=== PATIENT | female | born 1970 ===

== ENCOUNTER 2017-01-23 16:22 | Emergency (ER) | payer OTHER ==
[2017-01-23 16:27] VITALS: BMI 23.1
[2017-01-23 16:41] VITALS: BP 127/94; PULSE 95; RESP 16; TEMP 97.9
--- NOTE | 2017-01-23 16:42 | ED PDOC ---
Arrival/HPI - General Chief Complaint: Lower Extremity Problem/Injury Time Seen by Provider: 01/23/17 16:40 Historian: Patient - History of Present Illness Narrative History of Present Illness (Text): 01/23/17 16:40 46yo female who present with right foot pain s/p trauma yesterday. States she twisted her right foot while walking on a side walk yesterday. States she applied ice to the area without relieve. Did not take any medication. Patient with with weight bearing. Denies any other complaint. Past Medical History - Provider Review Nursing Documentation Reviewed: Yes - Infectious Disease Hx of Infectious Diseases: None - Tetanus Immunization Tetanus Immunization: Unknown - Past Medical History Past Medical History: No Previous - Cardiac Hx Cardiac Disorders: No - Pulmonary Hx Respiratory Disorders: No - Neurological Hx Neurological Disorder: No - HEENT Hx HEENT Disorder: No - Renal Hx Renal Disorder: No - Endocrine/Metabolic Hx Endocrine Disorders: No - Hematological/Oncological Hx Blood Disorders: No - Integumentary Hx Dermatological Disorder: No - Musculoskeletal/Rheumatological Hx Musculoskeletal Disorders: No Hx Falls: No - Gastrointestinal Hx Gastrointestinal Disorders: No - Genitourinary/Gynecological Hx Genitourinary Disorders: No - Psychiatric Hx Psychophysiologic Disorder: No Hx Depression: No Hx Emotional Abuse: No Hx Physical Abuse: No Hx Substance Use: No - Surgical History Hx Tubal Ligation: Yes - Anesthesia Hx Anesthesia: Yes Hx Anesthesia Reactions: No Hx Malignant Hyperthermia: No - Suicidal Assessment Feels Threatened In Home Enviroment: No Family/Social History - Physician Review Nursing Documentation Reviewed: Yes Family/Social History: Unknown Family HX Smoking Status: Light Smoker < 10 Cigarettes Daily Hx Alcohol Use: No Hx Substance Use: No Hx Substance Use Treatment: No Allergies/Home Meds Allergies/Adverse Reactions: Allergies No Known Allergies Allergy (Verified 01/23/17 16:28) Review of Systems - Physician Review All systems were reviewed & negative as marked: Yes - Review of Systems Constitutional: Normal Eyes: Normal ENT: Normal Respiratory: Normal Cardiovascular: Normal Gastrointestinal: Normal Genitourinary Female: Normal Musculoskeletal: Arthralgias (Right foot pain) Skin: Normal Neurological: Normal Endocrine: Normal Hemo/Lymphatic: Normal Psychiatric: Normal Physical Exam Vital Signs Reviewed: Yes Vital Signs Temp Pulse Resp BP Pulse Ox 01/23/17 16:37 97.9 F 95 H 16 127/94 H 97 Temperature: Afebrile Blood Pressure: Normal Pulse: Regular Respiratory Rate: Normal Appearance: Positive for: Well-Appearing, Non-Toxic, Comfortable Pain Distress: None Mental Status: Positive for: Alert and Oriented X 3 - Systems Exam Head: Present: Atraumatic, Normocephalic Pupils: Present: PERRL Extroacular Muscles: Present: EOMI Conjunctiva: Present: Normal Mouth: Present: Moist Mucous Membranes Neck: Present: Normal Range of Motion Respiratory/Chest: Present: Clear to Auscultation, Good Air Exchange. No: Respiratory Distress, Accessory Muscle Use Cardiovascular: Present: Regular Rate and Rhythm, Normal S1, S2. No: Murmurs Abdomen: Present: Normal Bowel Sounds. No: Tenderness, Distention, Peritoneal Signs Back: Present: Normal Inspection Upper Extremity: Present: Normal Inspection. No: Cyanosis, Edema Lower Extremity: Present: NORMAL PULSES, Normal ROM, Tenderness (Right lateral foot\), Neurovascularly Intact. No: Edema, Swelling, Erythema, Deformity, Temperature Abnormalties Neurological: Present: GCS=15, CN II-XII Intact, Speech Normal Skin: Present: Warm, Dry, Normal Color. No: Rashes Psychiatric: Present: Alert, Oriented x 3, Normal Insight, Normal Concentration Medical Decision Making ED Course and Treatment: 01/23/17 17:24 Right foot xray - No acute fracture/dislocation Andrew wrap applied and ortho shoe given Referred to her PMD. TRT ED for any new or worsening symptoms - RAD Interpretation Radiology Orders: 01/23/17 16:40 FOOT RIGHT 3 VIEWS ROUTINE [RAD] Stat - Medication Orders Current Medication Orders: Discontinued Medications Ibuprofen (Motrin Tab) 600 mg PO STAT STA Stop: 01/23/17 16:44 Last Admin: 01/23/17 17:12 Dose: 600 MG MAR Pain/Vitals Document 01/23/17 17:12 [email or web address] (Rec: 01/23/17 17:13 [email or web address] [facility] [place]-FAST- TRACK2) Pain Reassessment Is This A Pain ReAssessment? No Sleep Is patient sleeping during reassessment? No Presence of Pain Presence of Pain Yes Pain Scale Used Pain Scale Used Numeric Location Left, Right or Bilateral Right Pain Location Body Site Foot Description Constant Intensity 9 Scale Used Numeric Pain Behavior Facial Grimacing Aggravating Factors Changing Position Aggravating Factors Changing Position Disposition/Present on Arrival - Present on Arrival Any Indicators Present on Arrival: No History of DVT/PE: No History of Uncontrolled Diabetes: No Urinary Catheter: No History of Decub. Ulcer: No History Surgical Site Infection Following: None - Disposition Have Diagnosis and Disposition been Completed?: Yes Diagnosis: Foot sprain Disposition: HOME/ ROUTINE Disposition Time: 17:30 Patient Plan: Discharge Condition: STABLE Discharge Instructions (ExitCare): Foot Sprain (ED) Additional Instructions: Follow up with your Doctor Return to ED for any new or worsening symptoms Prescriptions: Ibuprofen [Motrin Tab] 600 mg PO Q6 #20 tab Referrals: Issa Prakash JD, MD [Primary Care Provider] - Follow up with primary Silvino Segura DO [Staff Provider] - Follow up with primary
[2017-01-23 18:15] VITALS: O2SAT 98
--- NOTE | 2017-01-24 09:59 | RAD ---
PROCEDURE: Right Foot Radiographs. HISTORY: foot pain s/p trauma COMPARISON: None. FINDINGS: BONES: Normal. No fracture. JOINTS: Normal. SOFT TISSUES: Normal. OTHER FINDINGS: None. IMPRESSION: Normal right foot radiographs.
== END 2017-01-23 18:15 | disposition home or self-care (01) ==
LOC: ED 16:22
DX: S93.601A Unspecified sprain of right foot, initial encounter (principal); X50.1XXA Overexertion from prolonged static or awkward postures, initial encounter; Y93.01 Activity, walking, marching and hiking; Y92.480 Sidewalk as the place of occurrence of the external cause

== ENCOUNTER 2018-03-24 15:15 | Emergency (ER) | payer SELFPAY ==
[2018-03-24 15:18] VITALS: BMI 23.1
[2018-03-24 15:22] VITALS: RESP 18; O2SAT 98
[2018-03-24] MEDS ORDERED: Sodium Chloride 0.9% 1,000 ML IV STA (15:52)
[2018-03-24] MEDS ORDERED: DiphenhydrAMINE 50 mg/ml Inj IVP STA (15:52)
--- NOTE | 2018-03-24 15:57 | ED PDOC ---
Arrival/HPI - General Historian: Patient - History of Present Illness Time/Duration: 24 hours Symptom Onset: Sudden Symptom Course: Unchanged <Juan Loaiza - Last Filed: 03/24/18 17:46> <Subhash Lagos - Last Filed: 03/24/18 21:58> - General Chief Complaint: Abnormal Skin Integrity Time Seen by Provider: 03/24/18 15:31 - History of Present Illness Narrative History of Present Illness (Text): 03/24/18 15:50 47 year old female, with no significant PMH, who presents to the emergency department complaining of itching/swelling/painful rash on bilateral lower extremities since one day ago s/p being in outdoor BBQ. Patient denies fever, chills, shortness of breath, pyruria, recent URI or throat infection, or other complaints. She reports the rash has not improved with no medication taken at home therefore is here for evaluation. (Juan Loaiza) Past Medical History - Provider Review Nursing Documentation Reviewed: Yes - Infectious Disease Hx of Infectious Diseases: None - Tetanus Immunization Tetanus Immunization: Unknown - Past Medical History Past Medical History: No Previous - Cardiac Hx Cardiac Disorders: No - Pulmonary Hx Respiratory Disorders: No - Neurological Hx Neurological Disorder: No - HEENT Hx HEENT Disorder: No - Renal Hx Renal Disorder: No - Endocrine/Metabolic Hx Endocrine Disorders: No - Hematological/Oncological Hx Blood Disorders: No - Integumentary Hx Dermatological Disorder: No - Musculoskeletal/Rheumatological Hx Musculoskeletal Disorders: No Hx Falls: No Other/Comment: prior injury to right knee. - Gastrointestinal Hx Gastrointestinal Disorders: No - Genitourinary/Gynecological Hx Genitourinary Disorders: No - Psychiatric Hx Psychophysiologic Disorder: No Hx Depression: No Hx Emotional Abuse: No Hx Physical Abuse: No Hx Substance Use: No - Surgical History Hx Tubal Ligation: Yes - Anesthesia Hx Anesthesia: Yes Hx Anesthesia Reactions: No Hx Malignant Hyperthermia: No - Suicidal Assessment Feels Threatened In Home Enviroment: No <Juan Loaiza - Last Filed: 03/24/18 17:46> Family/Social History - Physician Review Nursing Documentation Reviewed: Yes Family/Social History: Unknown Family HX Smoking Status: Current Some Days Smoker Hx Alcohol Use: Yes Hx Substance Use: No Hx Substance Use Treatment: No <Juan Loaiza - Last Filed: 03/24/18 17:46> Allergies/Home Meds <Juan Loaiza - Last Filed: 03/24/18 17:46> <Subhash Lagos - Last Filed: 03/24/18 21:58> Allergies/Adverse Reactions: Allergies No Known Allergies Allergy (Verified 08/16/17 15:48) Review of Systems - Review of Systems Constitutional: absent: Fatigue, Fevers Respiratory: absent: SOB Cardiovascular: absent: Chest Pain Gastrointestinal: absent: Abdominal Pain, Diarrhea, Nausea, Vomiting Genitourinary Female: absent: Dysuria Musculoskeletal: absent: Back Pain Skin: Rash, Pruritis, Skin Lesions, Cellulitis. absent: Laceration, Abscess, Ulcer Neurological: absent: Headache, Dizziness Psychiatric: absent: Anxiety, Depression, Suicidal Ideation <Juan Loaiza - Last Filed: 03/24/18 17:46> Physical Exam Vital Signs Reviewed: Yes Temperature: Afebrile Blood Pressure: Normal Pulse: Tachycardic Respiratory Rate: Normal Appearance: Positive for: Well-Appearing, Non-Toxic, Comfortable Pain Distress: None Mental Status: Positive for: Alert and Oriented X 3 - Systems Exam Head: Present: Atraumatic, Normocephalic Pupils: Present: PERRL Extroacular Muscles: Present: EOMI Conjunctiva: Present: Normal Ears: Present: NORMAL TM, Normal Canal. No: Erythema Mouth: Present: Moist Mucous Membranes Neck: Present: Normal Range of Motion Respiratory/Chest: Present: Clear to Auscultation, Good Air Exchange. No: Respiratory Distress, Accessory Muscle Use Cardiovascular: Present: Regular Rate and Rhythm, Normal S1, S2. No: Murmurs Abdomen: No: Tenderness, Distention, Peritoneal Signs Back: Present: Normal Inspection. No: CVA Tenderness, Midline Tenderness, Paraspinal Tenderness, Pain with Leg Raise, Decubitus Ulcer Upper Extremity: Present: Normal Inspection. No: Cyanosis, Edema Lower Extremity: Present: Normal Inspection. No: Edema Neurological: Present: GCS=15, CN II-XII Intact, Speech Normal, Motor Func Grossly Intact, Gait Normal, Memory Normal Skin: Present: Warm, Dry, Rashes (visible central insect bite brar with erythematous approx. 2cm diameter blanchable with no obvious streaking/ulcers but there is cellulitis, no pedal edema, negative rosalio and mendoza signs, no bullseye or target signs. ), Normal Color Psychiatric: Present: Alert, Oriented x 3, Normal Insight, Normal Concentration <Juan Loaiza - Last Filed: 03/24/18 17:46> Vital Signs Temp Pulse Resp BP Pulse Ox 03/24/18 19:15 98.5 F 89 18 126/81 98 03/24/18 17:44 98.5 F 83 18 126/80 98 03/24/18 15:15 99.1 F 98 H 18 117/76 98 Medical Decision Making - Lab Interpretations I have reviewed the lab results: Yes <Juan Loaiza - Last Filed: 03/24/18 17:46> <Subhash Lagos - Last Filed: 03/24/18 21:58> ED Course and Treatment: 03/24/18 -labs/ck -IVF/toradol/benadryl -Observe and reassess 03/24/18 17:04 - is negative -Labs show no acute findings with chronically elevated ast/alt -Clinically concerning for cellulitis and patient doesn't wanna be admitted at this time, discussed and examined with DR. Lagos which he suggest IV vanco/po doxy in the Emergency room with lymes IGG/IGM with 2 days follow up, pt. agreed and prefer this route of care. -IV vanco/oral doxy ordered/Igg/IGM lymes ordered. -Rash site traced by me in purple skin marker for follow up in 2 days. -Discharge home with keflex, doxycycline, benadryl, pepcid, tylenol, return to the Emergency room in 2 days for wound check and reevaluation but return to the Emergency room sooner if condition worsened. Follow up with your own pmd within 3 days. (Juan Loaiza) - Lab Interpretations Lab Results: 03/24/18 16:23 03/24/18 16:23 Lab Results 03/24/18 16:23: Sodium 139, Potassium 3.6, Chloride 99, Carbon Dioxide 24, Anion Gap 20, BUN 6 L, Creatinine 0.7, Est GFR ( Amer) > 60, Est GFR (Non -Af Amer) > 60, Random Glucose 89, Calcium 9.8, Total Bilirubin 0.5, AST 129 H, ALT 70 H, Alkaline Phosphatase 99, Total Creatine Kinase 172, Total Protein 8.7 H, Albumin 4.8, Globulin 3.8, Albumin/Globulin Ratio 1.3 03/24/18 16:23: WBC 8.9, RBC 4.04, Hgb 12.4, Hct 36.8, MCV 91.1, MCH 30.7, MCHC 33.7, RDW 12.6, Plt Count 204, MPV 10.0, Gran % 55.0, Lymph % (Auto) 27.9, [place] % (Auto) 16.8 H, Eos % (Auto) 0.1 L, Baso % (Auto) 0.2, Gran # 4.89, Lymph # ( Auto) 2.5, [place] # (Auto) 1.5 H, Eos # (Auto) 0.0, Baso # (Auto) 0.02 - Medication Orders Current Medication Orders: Discontinued Medications Diphenhydramine HCl (Benadryl) 50 mg IVP STAT STA Stop: 03/24/18 15:53 Last Admin: 03/24/18 16:09 Dose: 50 mg IVP Administration Document 03/24/18 16:09 CLAUDIA (Rec: 03/24/18 16:09 CLAUDIA [id number]) Charges for Administration # of IVP Administrations 1 Doxycycline Hyclate (Doryx) 100 mg PO STAT STA PRN Reason: Protocol Stop: 03/24/18 17:04 Last Admin: 03/24/18 17:15 Dose: 100 mg Sodium Chloride (Sodium Chloride 0.9%) 1,000 mls @ 999 mls/hr IV .Q1H1M STA Stop: 03/24/18 16:52 Last Admin: 03/24/18 16:11 Dose: 999 mls/hr eMAR Start Stop Document 03/24/18 16:11 LA (Rec: 03/24/18 16:11 CLAUDIA [id number]) Intravenous Solution Start Date 03/24/18 Start Time 16:11 End Date 03/24/18 End time 17:12 Total Infusion Time 61 Vancomycin HCl (Vancomycin 1gm) 1 gm in 250 mls @ 167 mls/hr IVPB STAT STA PRN Reason: Protocol Stop: 03/24/18 18:32 Last Admin: 03/24/18 17:15 Dose: 167 mls/hr eMAR Start Stop Document 03/24/18 17:15 LA (Rec: 03/24/18 17:15 CLAUDIA [id number]) Intravenous Solution Start Date 03/24/18 Start Time 17:15 End Date 03/24/18 End time 18:45 Total Infusion Time 90 Ketorolac Tromethamine (Toradol) 30 mg IVP STAT STA Stop: 03/24/18 15:53 Last Admin: 03/24/18 16:08 Dose: 30 mg [facility] Pain Assessment Document 03/24/18 16:08 LA (Rec: 03/24/18 16:09 [id number] Pain Reassessment Is this a pain reassessment? No Sleep Is patient sleeping during reassessment? No Presence of Pain Presence of Pain Yes Pain Scale Used Pain Scale Used Numeric Location Left, Right or Bilateral Bilateral Upper or Lower Lower Pain Location Body Site Leg Foot Description Intensity of Pain at present 6 Pain Behavior Guarding IVP Administration Document 03/24/18 16:08 LA (Rec: 03/24/18 16:09 CLAUDIA [id number]) Charges for Administration # of IVP Administrations 1 Re-Assess: PAULO Pain Assessment Document 03/24/18 17:08 LA (Rec: 03/24/18 17:16 SC [id number]) Pain Reassessment Is this a pain reassessment? Yes Sleep Is patient sleeping during reassessment? No Presence of Pain Presence of Pain Yes Pain Scale Used Pain Scale Used Numeric Location Left, Right or Bilateral Bilateral Upper or Lower Lower Pain Location Body Site Leg Foot Description Intensity of Pain at present 2 - PA / LINEN AIDE / Resident Statement MD/DO has reviewed & agrees with the documentation as recorded. - Scribe Statement The provider has reviewed the documentation as recorded by the Scribe <Juan Loaiza - Last Filed: 03/24/18 17:46> - PA / LINEN AIDE / Resident Statement MD/DO has reviewed & agrees with the documentation as recorded. <Subhash Lagos - Last Filed: 03/24/18 21:58> - Scribe Statement Kourtney Bangura Provider Scribe Attestation: All medical record entries made by the Scribe were at my direction and personally dictated by me. I have reviewed the chart and agree that the record accurately reflects my personal performance of the history, physical exam, medical decision making, and the department course for this patient. I have also personally directed, reviewed, and agree with the discharge instructions and disposition. (Juan Loaiza) Disposition/Present on Arrival - Present on Arrival Any Indicators Present on Arrival: No History of DVT/PE: No History of Uncontrolled Diabetes: No Urinary Catheter: No History of Decub. Ulcer: No History Surgical Site Infection Following: None - Disposition Have Diagnosis and Disposition been Completed?: Yes Disposition Time: 17:09 Patient Plan: Discharge <Juan Loaiza - Last Filed: 03/24/18 17:46> <Subhash Lagos - Last Filed: 03/24/18 21:58> - Disposition Diagnosis: Cellulitis, Rash and nonspecific skin eruption Disposition: HOME/ ROUTINE Condition: GOOD Discharge Instructions (ExitCare): Cellulitis (ED) Additional Instructions: -Discharge home with keflex, doxycycline, benadryl, pepcid, tylenol, return to the Emergency room in 2 days for wound check and reevaluation but return to the Emergency room sooner if condition worsened. Follow up with your own pmd within 3 days. 03/24/18 17:14 Prescriptions: Acetaminophen [Tylenol] 2 cap PO QID PRN #30 capsule PRN Reason: Other Cephalexin [Keflex] 500 mg PO QID PRN #40 capsule PRN Reason: Other DiphenhydrAMINE [Benadryl] 50 mg PO QID PRN #24 cap PRN Reason: Other Doxycycline Hyclate 100 mg PO BID #20 capsule Famotidine [Pepcid] 20 mg PO BID #20 tab Referrals: Barrera Moeller MD [Staff Provider] - Follow up with primary Lamont Tidwell MD [Staff Provider] - Follow up with primary Forms: WORK NOTE
[2018-03-24 16:44] LABS: BASO # 0.02 K/mm3 (0.0-2.0); BASO % 0.2 % (0.0-3.0); EOS % 0.1 % (1.5-5.0); GRAN # 4.89 (1.4-6.5); HEMOGLOBIN 12.4 g/dL (12.0-16.0); LYMPH # 2.5 (1.2-3.4); LYMPH % 27.9 % (22.0-35.0); MEAN CELL VOLUME 91.1 fl (80.0-105.0); MEAN CORPUSCULAR HEMOGLOBIN 30.7 pg (25.0-35.0); MEAN CORPUSCULAR HGB CONC 33.7 g/dl (31.0-37.0); MONO # 1.5 (0.1-0.6); MONO % 16.8 % (1.0-6.0); RBC 4.04 10^6/uL (3.5-6.1); RED CELL DISTRIBUTION WIDTH 12.6 % (11.5-14.5); WHITE BLOOD COUNT 8.9 10^3/ul (4.5-11.0)
[2018-03-24 16:47] LABS: ALB/GLOB RATIO 1.3 (1.1-1.8); ALBUMIN 4.8 g/dL (3.0-4.8); ALT/SGPT 70 U/L (7-56); AST/SGOT 129 U/L (14-36); BLOOD UREA NITROGEN 6 mg/dL (7-21); CALCIUM 9.8 mg/dL (8.4-10.5); GFR AFRICAN-AMERICAN > 60; GFR NON-AFRICAN AMERICAN > 60
[2018-03-24] MEDS ORDERED: Vancomycin 1gm in NS 250ml 1 GM/250 ML BAG IVPB STA (17:03)
[2018-03-24 17:50] VITALS: TEMP 98.5
[2018-03-24 19:19] VITALS: BP 126/81; PULSE 89
[2018-03-26 16:56] LABS: LYME IGG NEGATIVE (NEGATIVE)
[2018-03-26 16:57] LABS: LYME IGM NEGATIVE (NEGATIVE)
== END 2018-03-24 19:15 | disposition home or self-care (01) ==
LOC: ED 15:15
DX: R21 Rash and other nonspecific skin eruption (principal); L03.116 Cellulitis of left lower limb; L03.115 Cellulitis of right lower limb
CPT/HCPCS: 80053; 82550; 85025; 86618; 96361; 96365; 96375; 99284; J1200; J1885; J7030